=== PATIENT | male | born 1965 | race Caucasian/White ===

== ENCOUNTER 2019-07-28 17:22 | Emergency (ER) | payer MEDICARE, MEDICAID ==
[~2019-07-28] VITALS: Ht 180.3 cm; Wt 84.1 kg
[2019-07-28 17:25] VITALS: BP 135/99
[2019-07-28] MEDS ORDERED: CEFDINIR 300 MG CAPSULE ONE (17:44)
[2019-07-28] MEDS ORDERED: CEFDINIR 300 MG CAPSULE PO ONE (18:00)
[2019-07-28] MEDS ORDERED: NEO/POLY/HC EAR SUSP 10ML RIGHT EAR SCH (18:00)
== END 2019-07-28 18:02 | disposition home or self-care (01) ==
LOC: ED 17:45
DX: H60.501 Unspecified acute noninfective otitis externa, right ear (principal); H60.11 Cellulitis of right external ear; F17.210 Nicotine dependence, cigarettes, uncomplicated
CPT/HCPCS: 99283; 99406

== ENCOUNTER 2020-07-10 21:48 | Emergency (ER) | payer MEDICARE, MEDICAID ==
[~2020-07-10] VITALS: Ht 185.4 cm; Wt 94.0 kg
[2020-07-10 21:51] VITALS: BP 144/102
--- NOTE | 2020-07-10 22:01 | NUR ---
PCP NOT ANSWERING PHONE FOR REFILL OF VIMPAT. TAKES TWICE A DAY-TOOK AM DOSE
== END 2020-07-10 22:31 | disposition home or self-care (01) ==
LOC: ED 22:21
DX: R56.9 Unspecified convulsions (principal); Z76.0 Encounter for issue of repeat prescription; F17.210 Nicotine dependence, cigarettes, uncomplicated; E78.00 Pure hypercholesterolemia, unspecified
CPT/HCPCS: 99283; 99406

== ENCOUNTER 2020-08-08 17:01 | Emergency (ER) | payer MEDICARE, MEDICAID ==
[~2020-08-08] VITALS: Ht 182.9 cm; Wt 97.8 kg
[2020-08-08] MEDS ORDERED: LACO200T PO (17:25)
--- NOTE | 2020-08-08 17:25 | NUR ---
PT ALTERED TO TIME AT TIME OF ARRIVAL. PT'S SISTER AND MOTHER AT BEDSIDE. PER PT'S SISTER, PT C/O FEELING UNWELL AT 0200 THIS MORNING. PT FOUND BY SISTER AT 1300 TO BE COVERED IN MUD, AMBULATORY, ALTERED, WITH MULTIPLE ABRASIONS AND A LACERATION TO THE RIGHT SIDE OF HIS NOSE. PT WAS ABLE TO FOLLOW SISTER'S COMMANDS AT THAT TIME AND SHOWER TO CLEAN HIMSELF OFF. PT'S SISTER STATES THAT HE WAS INCONTINENT OF STOOL AND URINE AT THAT TIME. PT WAS THEN FOUND AROUND 1600 TO HAVE GONE INTO HIS NIECE'S ROOM, AND YELLING AT THE WALL AND THEN BEGAN URINATING ON THE BED. PER PT'S SISTER, PT WAS ALTERED AGAIN AT THAT TIME, UNCONTROLLABLE, AND HE WAS UNABLE TO COMMUNICATE. UPON ARRIVAL TO ED, PT ABLE TO FOLLOW COMMANDS. ALERT AND ORIENTED TO PERSON, PLACE, AND EVENT. ALTERED TO TIME. FALL PRECAUTIONS IN PLACE. VSS. CALL LIGHT AT BEDSIDE. PT AND FAMILY INSTRUCTED ON USE, VERBALIZED UNDERSTANDING. CONTINUOUS SPO2 AND CARDIAC MONITORING IN PLACE.
[2020-08-08] MEDS ORDERED: FAMOTIDINE 20 MG/2 ML ONE (17:50)
[2020-08-08] MEDS ORDERED: ONDANSETRON 2MG/ML, 2ML ONE (17:50)
--- NOTE | 2020-08-08 17:51 | NUR ---
LORRI Gayle at bedside for eval
--- NOTE | 2020-08-08 17:56 | NUR ---
bedside report to sean Wagoner. Lab at bedside.
[2020-08-08] MEDS ORDERED: SODIUM CHLORIDE FLUSH 10ML SYR IVF ONE (18:00)
[2020-08-08] MEDS ORDERED: FAMOTIDINE 20 MG/2 ML IVPush ONE (18:00)
[2020-08-08] MEDS ORDERED: SODIUM CHLORIDE 0.9% 1,000ML IVBOLUS ONE (18:00)
[2020-08-08] MEDS ORDERED: ONDANSETRON 2MG/ML, 2ML IVPush ONE (18:00)
[2020-08-08 18:06] LABS: BASOPHILS % (AUTO) 1 % (0-1); EOSINOPHILS % (AUTO) 0 % (1-7); LYMPHOCYTES % (AUTO) 8 % (22-44); MEAN CORPUSCULAR HGB CONC 34.5 g/dL (33.2-36.2); MEAN PLATELET VOLUME 8.3 fL (7.4-10.4); MONOCYTES % (AUTO) 8 % (2-9); NEUTROPHILS % (AUTO) 84 % (42-75); PLATELET COUNT 204 x10^3/uL (130-400); RED BLOOD COUNT 4.99 x10^6/uL (4.38-5.82); RED CELL DISTRIBUTION WIDTH 13.1 % (9.4-14.8)
[2020-08-08 18:29] LABS: ALANINE AMINOTRANSFERASE 33 U/L (12-78); ALBUMIN 4.2 g/dL (3.4-5.0); ANION GAP 8 mmol/L (5-15); CALCIUM 9.1 mg/dL (8.5-10.1); CHLORIDE 106 mmol/L (98-107); CREATININE 1.21 mg/dL (0.7-1.3)
[2020-08-08 18:31] LABS: ALKALINE PHOSPHATASE 73 U/L (45-117); BILIRUBIN,TOTAL 0.3 mg/dL (0.2-1.0); TOTAL PROTEIN 8.1 g/dL (6.4-8.2)
[2020-08-08 18:37] LABS: MD SCAN
--- NOTE | 2020-08-08 19:18 | NUR ---
Pt to CT
[2020-08-08 19:41] VITALS: BP 144/87
--- NOTE | 2020-08-08 19:42 | NUR ---
pt back from imaging, resting in bed, no neuro changes noted
--- NOTE | 2020-08-08 21:18 | NUR ---
Report to Reg PAGE
== END 2020-08-08 21:51 | disposition home or self-care (01) ==
LOC: ED 17:35
DX: G40.309 Generalized idiopathic epilepsy and epileptic syndromes, not intractable, without status epilepticus (principal); M79.10 Myalgia, unspecified site; R41.82 Altered mental status, unspecified; R94.31 Abnormal electrocardiogram [ECG] [EKG]; E78.00 Pure hypercholesterolemia, unspecified; F17.200 Nicotine dependence, unspecified, uncomplicated
CPT/HCPCS: 36415; 70450; 80053; 80320; 83690; 85025; 93005; 96374; 96375; 99285; J2405; J7030; 99284; G0480